=== PATIENT | female | born 1995 | race Caucasian/White ===

== ENCOUNTER 2022-06-03 08:23 | Inpatient (IN) ==
[2022-06-03] MEDS ORDERED: Lactated Ringers 1000 ml BAG 1,000 ML IV ONE (08:46)
[2022-06-03] MEDS ORDERED: Witch Hazel PAD JAR TOPICAL PRN (08:48)
[2022-06-03] MEDS ORDERED: Glycerin ADULT 2.4 gm SUPP PR PRN (08:48)
[2022-06-03] MEDS ORDERED: Dibucaine 1% OINT 28.35 GM TUBE PR PRN (08:48)
[2022-06-03] MEDS ORDERED: Oxytocin 10 UNITS/ML 1 ML VIAL IM ONE (08:48)
[2022-06-03] MEDS ORDERED: Lactated Ringers 1000 ml BAG 1,000 ML IV SCH (09:00)
[2022-06-03 11:34] LABS: Urine Benzodiazepine Screen None Detected (None Detect); Urine Cannabinoids Screen None Detected (None Detect); Urine Opiates Screen None Detected (None Detect)
[2022-06-04 07:25] LABS: ABS Basophils 0.1 10^3/ul (0-0.2); ABS Eosinophils 0.2 10^3/ul (0-0.6); ABS Lymphocytes 2.1 10^3/ul (1.0-4.8); ABS Monocytes 1.4 10^3/ul (0-0.8); ABS Neutrophils 7.6 10^3/ul (1.5-7.7); Eosinophil % 1.6 %; Hematocrit 31 % (35-47); Hemoglobin 9.9 g/dL (12.0-16.0); Lymphocyte % 18.8 %; Mean Corpuscular HGB Conc 32 g/dL (31-36); Mean Corpuscular Hemoglobin 27 pg (27-31); Mean Corpuscular Volume 84 fL (80-97); Mean Platelet Volume 8.7 fL (7.4-10.4); Nucleated Red Blood Cells % 0.1; Platelet Count 211 10^3/uL (150-450); Red Blood Count 3.69 10^6 /uL (3.70-4.87); Red Cell Distribution Width 17 % (10-15); White Blood Count 11.4 10^3/uL (3.5-10.8)
[2022-06-04 07:55] VITALS: BP 124/72
[2022-06-04] MEDS ORDERED: Influenza vaccine *QUAD* *2022-23* 0.5 ML SYRINGE IM ONE (09:00)
== END 2022-06-04 14:02 | disposition home or self-care (01) | DRG 560 ==
LOC: MCHOBOUT 08:23 → MCHOB 08:33
PROVIDERS: ADMIT Midwife; ATTEND Midwife